=== PATIENT | male | born 1975 | race Caucasian/White ===

== ENCOUNTER 2018-12-27 23:19 | Emergency (ER) | payer OTHER ==
[~2018-12-27] VITALS: Ht 180.3 cm; Wt 90.0 kg
[~2018-12-27 23:19] MED LIST: ASPI-817 PO; ATORVASTATIN PO; COZAAR PO; INSULIN SC; TRAMADOL PO
[2018-12-27 23:26] VITALS: Ht 180.3 cm; Wt 90.0 kg
[2018-12-28] MEDS ORDERED: DEXTROSE 5%-0.9% NACL 1,000 ML IV SCH (00:30)
[2018-12-28 02:47] VITALS: BP 121/86; PULSE 87; RESP 24
--- NOTE | 2019-01-24 21:07 | ERD ---
ER Documentation Chief Complaint Chief Complaint pt accidentally took 36 units novolog @ 2240 HPI Is a 43-year-old male who accidentally took his morning insulin and hypoglycemic episode. He was given D50 by paramedics when he was found to be altered. Complete resolution of symptoms prior to arrival. No nausea vomiting fevers or chills. No chest pain. No other current complaints. ROS All systems reviewed and are negative except as per history of present illness. Medications Home Meds Reported Medications [Tramadol] No Conflict Check, PO DAILY PRN for PAIN AND/OR INFLAMMATION 03/14/16 [Tramadol] No Conflict Check, PO DAILY 03/14/16 Aspirin* (Aspirin* EC) 81 Mg Tablet.dr, 81 MG PO DAILY, TAB 03/14/16 [Atorvastatin] No Conflict Check, PO DAILY 03/14/16 [Cozaar] No Conflict Check, PO DAILY 03/14/16 [Insulin] No Conflict Check, SC DAILY 03/14/16 Allergies Allergies: Coded Allergies: No Known Allergy (Unverified , 03/14/16) PMhx/Soc History of Surgery: No Anesthesia Reaction: No Hx Neurological Disorder: Yes (NEUROPATHY) Hx Respiratory Disorders: No Hx Cardiac Disorders: Yes (HTN, CHEST PAIN CHRONIC) Hx Psychiatric Problems: No Hx Miscellaneous Medical Probl: Yes (HIGH CHOLESTEROL) Hx Alcohol Use: No Hx Substance Use: No Hx Tobacco Use: No Smoking Status: Never smoker Physical Exam Physical Exam Const: No acute distress Head: Atraumatic Eyes: Normal Conjunctiva ENT: Normal External Ears, Nose and Mouth. Neck: Full range of motion. No meningismus. Resp: Clear to auscultation bilaterally Cardio: Regular rate and rhythm, no murmurs Abd: Soft, non tender, non distended. Normal bowel sounds Skin: No petechiae or rashes Back: No midline or flank tenderness Ext: No cyanosis, or edema Neur: Awake and alert Psych: Normal Mood and Affect Results 24 hrs Laboratory Tests Test 12/27/18 23:00 12/27/18 23:22 12/27/18 23:36 12/28/18 00:39 White Blood Count 6.2 10^3/ul Red Blood Count 4.98 10^6/ul Hemoglobin 14.9 g/dl Hematocrit 41.6 % Mean Corpuscular 83.5 fl Volume Mean Corpuscular 29.9 pg Hemoglobin Mean Corpuscular 35.8 g/dl Hemoglobin Concent Red Cell 11.9 % Distribution Width Platelet Count 223 10^3/UL Mean Platelet 10.3 fl Volume Immature 0.200 % Granulocytes % Neutrophils % 47.6 % Lymphocytes % 38.7 % Monocytes % 7.9 % Eosinophils % 5.3 % Basophils % 0.3 % Nucleated Red Blood 0.0 /100WBC Cells % Immature 0.010 10^3/ul Granulocytes # Neutrophils # 3.0 10^3/ul Lymphocytes # 2.4 10^3/ul Monocytes # 0.5 10^3/ul Eosinophils # 0.3 10^3/ul Basophils # 0.0 10^3/ul Nucleated Red Blood 0.0 10^3/ul Cells # Sodium Level 138 mmol/L Potassium Level 3.5 mmol/L Chloride Level 97 mmol/L Carbon Dioxide 30 mmol/L Level Anion Gap 11 Blood Urea Nitrogen 14 mg/dl Creatinine 0.74 mg/dl Est Glomerular > 60 mL/min Filtrat Rate mL/min Glucose Level 193 mg/dl Calcium Level 9.7 mg/dl Bedside Glucose 217 mg/dL 188 mg/dL 185 mg/dL Test 12/28/18 02:46 12/28/18 03:17 Bedside Glucose 127 mg/dL 137 mg/dL Current Medications Medications Dose Sig/Jackie Start Time Status Last (Trade) Ordered Route PRN Stop Time Admin Dose Reason Admin 1,000 ml @ [id number] IV 12/28/18 DC 12/28/18 Dextrose/Sodi 150 mls/hr 00:30 00:31 um Chloride 12/28/18 03:21 Procedures/MDM EKG: Rate/Rhythm: [Normal Sinus Rhythm] QRS, ST, T-waves: [No changes consistent w/ acute ischemia] Impression: [No evidence of ischemia or arrhythmia] Medical decision making: This very pleasant gentleman essentially an accidental overdose but is medically stable. Is been fed. Sugars have been stable. Patient will be discharged home. Follow-up with PCP. Return for worsening sy mptoms. Departure Diagnosis: Primary Impression: Accidental overdose Encounter type: initial encounter Qualified Codes: T50.901A - Poisoning by unspecified drugs, medicaments and biological substances, accidental (unintentional), initial encounter Condition: Stable Patient Instructions: Diabetic Insulin Reaction, Overdose, Accidental (Adult) CHERIE NIEVES January 24, 2019 21:07
== END 2018-12-28 03:21 | disposition home or self-care (01) ==
LOC: E/R 23:19
DX: T38.3X1A Poisoning by insulin and oral hypoglycemic [antidiabetic] drugs, accidental (unintentional), initial encounter (principal); I10 Essential (primary) hypertension; Z79.4 Long term (current) use of insulin; Z79.82 Long term (current) use of aspirin
CPT/HCPCS: 80048; 82962; 85025; J7042; 36415

== ENCOUNTER 2019-07-15 22:22 | Emergency (ER) | payer OTHER ==
[~2019-07-15] VITALS: Ht 180.3 cm; Wt 97.3 kg
[~2019-07-15 22:22] MED LIST changes: +ERYT1OIN6 LEFT EYE; +HYDR25TA6 PO
[2019-07-15 22:30] VITALS: Ht 180.3 cm; Wt 97.3 kg
[2019-07-15 22:47] VITALS: BP 175/99; PULSE 89; RESP 16
[2019-07-15] MEDS ORDERED: TETRACAINE 0.5% 4 ML OPH BOTH EYES ONE (23:30)
[2019-07-15] MEDS ORDERED: FLUORESCEIN STRIP BOTH EYES ONE (23:30)
== END 2019-07-16 02:00 | disposition home or self-care (01) ==
LOC: FTE 22:22
DX: I10 Essential (primary) hypertension (principal); E11.9 Type 2 diabetes mellitus without complications; Z79.4 Long term (current) use of insulin; Z79.82 Long term (current) use of aspirin
CPT/HCPCS: Z7502; Z7610; 99283